=== PATIENT | female | born 1985 | race Caucasian/White ===

== ENCOUNTER 2016-09-26 22:22 | Emergency (ER) | payer OTHER ==
[2016-09-27] MEDS ORDERED: IBUPROFEN 800 MG TABLET ONE (00:30)
[2016-09-27] MEDS ORDERED: ACETAMINOPHEN 500 MG TABLET ONE (00:30)
[2016-09-27] MEDS ORDERED: CEPHALEXIN 500 MG CAPSULE ONE (00:39)
== END 2016-09-27 00:49 | disposition home or self-care (01) ==
LOC: ED 22:22
DX: K08.89 Other specified disorders of teeth and supporting structures (principal); G89.29 Other chronic pain; M54.9 Dorsalgia, unspecified; F17.210 Nicotine dependence, cigarettes, uncomplicated; Z88.0 Allergy status to penicillin
CPT/HCPCS: 99283 ×2; A9270 ×3